=== PATIENT | male | born 1960 | race Caucasian/White ===

== ENCOUNTER 2018-02-12 08:19 | Emergency (ER) | payer OTHER ==
[~2018-02-12] VITALS: Ht 170.2 cm; Wt 70.3 kg
[2018-02-12 08:37] VITALS: BP 112/72
[2018-02-12 09:24] LABS: HEMATOCRIT 42.2 % (42.0-52.0); HEMOGLOBIN 12.7 G/DL (14.2-18.0); MEAN CORPUSCULAR VOLUME 66 FL (80-99); PLATELET COUNT 233 K/UL (150-450); RED BLOOD COUNT 6.39 M/UL (4.70-6.10); RED CELL DISTRIBUTION WIDTH 14.4 % (11.6-14.8); WHITE BLOOD COUNT 6.4 K/UL (4.8-10.8)
--- NOTE | 2018-02-12 09:25 | Diagnostic Imaging Report ---
Indication: Pain Technique: XRAY Chest 1v Comparison: 04/07/2012 Findings: Heart size and mediastinal contours are within normal limits for technique and stable compared to the prior exam. There is no focal consolidation, pneumothorax or pleural effusion. Osseous structures demonstrate no acute abnormality. Impression: No radiographic evidence of acute cardiopulmonary disease.
--- NOTE | 2018-02-12 09:31 | Emergency Room Report ---
History of Present Illness General Chief Complaint: Pain Source: Patient Present Illness HPI 58-year-old male presents ED for evaluation. Patient noting pain in his left axilla and his left wrist. States he's had the pain in his left axilla for the last 2 months. Dull, 6 out of 10, nonradiating. Denies any recent trauma. The notes tingling sensation in his left wrist radiating to his left palm. Denies pain. Denies any motor weakness. Denies any chest pain or shortness of breath. Patient states that he is currently being worked up for a abnormal prostate. States PSA levels were somewhat high. Patient is scheduled for a fusion biopsy in March. No other aggravating relieving factors. Denies any other associated symptoms Allergies: Coded Allergies: No Known Allergies (Unverified , 02/12/18) Patient History Past Medical History: none Past Surgical History: none Pertinent Family History: none Social History: Denies: smoking, alcohol use, drug use Immunizations: UTD Reviewed Nursing Documentation: PMH: Agreed; PSxH: Agreed Review of Systems All Other Systems: negative except mentioned in HPI Physical Exam Vital Signs Date Time Temp Pulse Resp B/P (MAP) Pulse Ox O2 Delivery O2 Flow Rate FiO2 02/12/18 08:27 97.6 72 18 109/69 98 Room Air 97.5 Sp02 EP Interpretation: reviewed, normal General Appearance: no apparent distress, alert, GCS 15, non-toxic Head: normocephalic, atraumatic Eyes: bilateral eye normal inspection, bilateral eye PERRL ENT: hearing grossly normal, normal pharynx, no angioedema, normal voice Neck: full range of motion, supple/symm/no masses Respiratory: chest non-tender, lungs clear, normal breath sounds, speaking full sentences Cardiovascular #1: regular rate, rhythm, no edema Cardiovascular #2: 2+ carotid (R), 2+ carotid (L), 2+ radial (R), 2+ radial (L) , 2+ dorsalis pedis (R), 2+ dorsalis pedis (L) Gastrointestinal: normal bowel sounds, non tender, soft, non-distended, no guarding, no rebound Rectal: deferred Genitourinary: normal inspection, no CVA tenderness Musculoskeletal: back normal, gait/station normal, normal range of motion, non- tender, tender - L axilla. no appreciable lymph node palpated Neurologic: alert, oriented x3, responsive, motor strength/tone normal, sensory intact, speech normal Psychiatric: judgement/insight normal, memory normal, mood/affect normal, no suicidal/homicidal ideation Reflexes: 3+ bicep (R), 3+ bicep (L), 3+ tricep (R), 3+ tricep (L), 3+ knee (R) , 3+ knee (L) Skin: normal color, no rash, warm/dry, well hydrated Lymphatic: no adenopathy Medical Decision Making Diagnostic Impression: Primary Impression: Arm pain Qualified Codes: M79.602 - Pain in left arm ER Course Hospital Course 58 yo M presents with L arm pain tinging to fingers Differential diagnoses include: Rib fracture, [place]/unstable angina, contusion, muscle strain Clinical course Patient placed on stretcher. After initial history and physical I ordered labs , EKG, chest x-ray. labs reviewed- all electrolytes normal, troponins negative, no leukocytosis, hemoglobin/hematocrit stable EKG - NSR, no acute ischemic changes interpreted by me Chest x-ray-no cardiomegaly, no rib fracture, no pneumothorax, no acute process I discussed findings with the patient. Patient does have pain in the axilla which she describes as deep. Consideration for lymphadenopathy although I am unable to palpate this. Concern is that patient is being worked up for possible prostate cancer and this could indicate possible metastasis or spread. Patient has no shortness of breath or chest pain. No fevers or chills. No cough. Patient has no cardiac risk factors. Patient has had these symptoms for the last 2 months. Patient will follow-up with his PMD. Consideration of CT versus MRI as outpatient with possible biopsy if lymphadenopathy detected I. I feel this is a highly complex case requiring extensive working including EKG/Rhythm strip, Xray/CT/US, Blood/urine lab work, repeat exams while in ED, and administration of strong opiates/narcotics for pain control, admission to hospital or close patient follow up. Diagnosis - arm pain Stable and discharged to home. Instructed to followup with PMD. Return to ED if symptoms recur or worsen Labs Test 02/12/18 09:10 White Blood Count 6.4 K/UL (4.8-10.8) Red Blood Count 6.39 M/UL (4.70-6.10) Hemoglobin 12.7 G/DL (14.2-18.0) Hematocrit 42.2 % (42.0-52.0) Mean Corpuscular Volume 66 FL (80-99) Mean Corpuscular Hemoglobin 19.9 PG (27.0-31.0) Mean Corpuscular Hemoglobin Concent 30.2 G/DL (32.0-36.0) Red Cell Distribution Width 14.4 % (11.6-14.8) Platelet Count 233 K/UL (150-450) Mean Platelet Volume 7.2 FL (6.5-10.1) Neutrophils (%) (Auto) % (45.0-75.0) Lymphocytes (%) (Auto) % (20.0-45.0) Monocytes (%) (Auto) % (1.0-10.0) Eosinophils (%) (Auto) % (0.0-3.0) Basophils (%) (Auto) % (0.0-2.0) Differential Total Cells Counted 100 Neutrophils % (Manual) 74 % (45-75) Lymphocytes % (Manual) 16 % (20-45) Monocytes % (Manual) 6 % (1-10) Eosinophils % (Manual) 4 % (0-3) Basophils % (Manual) 0 % (0-2) Band Neutrophils 0 % (0-8) Platelet Estimate Adequate Platelet Morphology Normal Hypochromasia 1+ Microcytosis 3+ Sodium Level 137 MMOL/L (136-145) Potassium Level 4.5 MMOL/L (3.5-5.1) Chloride Level 103 MMOL/L (98-107) Carbon Dioxide Level 27 MMOL/L (21-32) Anion Gap 7 mmol/L (5-15) Blood Urea Nitrogen 10 mg/dL (7-18) Creatinine 0.8 MG/DL (0.55-1.30) Estimat Glomerular Filtration Rate > 60 mL/min (>60) Glucose Level 95 MG/DL (74-106) Calcium Level 9.0 MG/DL (8.5-10.1) Total Bilirubin 0.8 MG/DL (0.2-1.0) Aspartate Amino Transf (AST/SGOT) 28 U/L (15-37) Alanine Aminotransferase (ALT/SGPT) 26 U/L (12-78) Alkaline Phosphatase 69 U/L (46-116) Total Creatine Kinase 64 U/L (26-308) Creatine Kinase MB < 0.5 NG/ML (0.0-3.6) Creatine Kinase MB Relative Index 0.7 Troponin I 0.000 ng/mL (0.000-0.056) Total Protein 7.3 G/DL (6.4-8.2) Albumin 3.9 G/DL (3.4-5.0) Globulin 3.4 g/dL Albumin/Globulin Ratio 1.1 (1.0-2.7) EKG Diagnostic Results Rate: normal Rhythm: NSR ST Segments: no acute changes ASA given to the pt in ED: No Rhythm Strip Diag. Results EP Interpretation: yes Rhythm: NSR, no PVC's, no ectopy Chest X-Ray Diagnostic Results Chest X-Ray Diagnostic Results : Chest X-Ray Ordered: Yes # of Views/Limited/Complete: 1 View Indication: Chest Pain EP Interpretation: Yes Interpretation: no consolidation, no effusion, no pneumothorax, no acute cardiopulmonary disease Impression: No acute disease Electronically Signed by: Electronically signed by Reddy King MD Last Vital Signs Date Time Temp Pulse Resp B/P (MAP) Pulse Ox O2 Delivery O2 Flow Rate FiO2 02/12/18 08:27 97.6 72 18 109/69 98 Room Air 97.5 Status: improved Disposition: HOME, SELF-CARE Condition: Stable Scripts No Active Prescriptions or Reported Meds Referrals: [facility] (PCP) Reddy King MD Feb 12, 2018 09:31
[2018-02-12 09:32] LABS: ANION GAP 7 mmol/L (5-15); BLOOD UREA NITROGEN 10 mg/dL (7-18); CARBON DIOXIDE 27 MMOL/L (21-32); CHLORIDE 103 MMOL/L (98-107); CREATININE 0.8 MG/DL (0.55-1.30); POTASSIUM 4.5 MMOL/L (3.5-5.1); SODIUM 137 MMOL/L (136-145)
[2018-02-12 09:46] LABS: ALANINE AMINOTRANSFERASE 26 U/L (12-78); ALBUMIN 3.9 G/DL (3.4-5.0); ALBUMIN/GLOBULIN RATIO 1.1 (1.0-2.7); ALKALINE PHOSPHATASE 69 U/L (46-116); ASPARTATE AMINO TRANSFERASE 28 U/L (15-37); BILIRUBIN,TOTAL 0.8 MG/DL (0.2-1.0); CKMB < 0.5 NG/ML (0.0-3.6); CREATINE KINASE 64 U/L (26-308)
[2018-02-12 10:25] VITALS: BP 107/69
--- NOTE | 2018-02-13 16:25 | Cardiology Report ---
APPROVED REPORT EKG Measurement Heart [id number] Normal sinus rhythm Normal ECG
== END 2018-02-12 10:29 | disposition home or self-care (01) ==
LOC: EMR 08:52
DX: M79.622 Pain in left upper arm (principal); R20.2 Paresthesia of skin
CPT/HCPCS: 36415; 71045; 80053; 82550; 82553; 84484; 85007; 85025; 93005; 99283

== ENCOUNTER 2018-02-27 11:18 | Emergency (ER) | payer OTHER ==
[~2018-02-27] VITALS: Ht 170.2 cm; Wt 70.3 kg
[2018-02-27 11:34] VITALS: BP 124/77
--- NOTE | 2018-02-27 12:39 | Emergency Room Report ---
History of Present Illness General Chief Complaint: Allergic Reaction Source: Patient Present Illness HPI 58-year-old male presents with allergic reaction after using a topical skin cream on his face, he reports he within an hour started developing swelling around his eyes, and cut his throat was closing, he never had a hoarse voice, no red eyes or abdominal pain or any other symptoms and he reports that his hours improvement incisor still swollen. He reports he had a similar episode about 6 weeks ago when he ate a bunch of fenugreek seeds inhis throat swelling at that time but that went away on its own so he never got checked out again. He's never had any other similar reactions in his life. He reports he is not sure exactly what kind of facial cream that was. Allergies: Coded Allergies: FENUGREEK (Verified Allergy, Unknown, 02/27/18) Patient History Past Medical History: see triage record Reviewed Nursing Documentation: PMH: Agreed; PSxH: Agreed Nursing Documentation-PMH Past Medical History: No Stated History Review of Systems All Other Systems: negative except mentioned in HPI Physical Exam Vital Signs Date Time Temp Pulse Resp B/P (MAP) Pulse Ox O2 Delivery O2 Flow Rate FiO2 02/27/18 11:19 97.8 68 18 124/77 98 Room Air 97.9 Sp02 EP Interpretation: reviewed, normal General Appearance: no apparent distress, alert, non-toxic Head: normocephalic Eyes: bilateral eye normal inspection, bilateral eye PERRL, bilateral eye EOMI , bilateral eye other - Periorbital mild edema around lids superior and inferior , otherwise normal ENT: normal ENT inspection, hearing grossly normal, normal pharynx, no angioedema, normal voice, moist mucus membranes Neck: normal inspection, full range of motion, supple, supple/symm/no masses Respiratory: chest non-tender, lungs clear, normal breath sounds, chest symmetrical, palpation of chest normal Cardiovascular #1: normal peripheral pulses, regular rate, rhythm Cardiovascular #2: 2+ radial (R), 2+ radial (L) Gastrointestinal: normal inspection, non tender, soft, no mass, no guarding, no rebound Rectal: deferred Genitourinary: normal inspection, no CVA tenderness Musculoskeletal: back normal, gait/station normal, normal range of motion, non- tender, no calf tenderness Neurologic: alert, responsive, reflexologist III-XII nml as tested, motor strength/tone normal, sensory intact, speech normal Psychiatric: judgement/insight normal, memory normal, mood/affect normal, no suicidal/homicidal ideation Skin: normal color, no rash - Normal other than periorbital edema, with no erythema, warm/dry, normal turgor Lymphatic: no adenopathy Medical Decision Making Diagnostic Impression: Primary Impression: Allergic reaction ER Course Although patient reported his throat was closing, he had a completely normal oral exam, the only reaction he seemed to have as a topical 1 around his eyes, he'll be discharged with prednisone and Benadryl, he was monitored for over an hour in the ED did not develop any systemic or mucous membrane symptomatology or airway impingement symptoms here or exam findings of concern. He was instructed to avoid using the product as well as fenugreek seeds and follow-up with his primary doctor for allergy testing referral Last Vital Signs Date Time Temp Pulse Resp B/P (MAP) Pulse Ox O2 Delivery O2 Flow Rate FiO2 02/27/18 11:34 97.9 80 18 124/77 98 Room Air 97.9 Status: improved Disposition: HOME, SELF-CARE Condition: Stable Scripts No Active Prescriptions or Reported Meds Referrals: [facility] (PCP) XU DAVIS M.D Feb 27, 2018 12:39
[2018-02-27] MEDS ORDERED: PREDNISONE20 MG ORAL (12:40)
[2018-02-27] MEDS ORDERED: BENADRYL25 M3 PO (12:40)
[2018-02-27 12:48] VITALS: BP 124/77
== END 2018-02-27 12:50 | disposition home or self-care (01) ==
LOC: EMR 11:45
DX: T78.49XA Other allergy, initial encounter (principal); X58.XXXA Exposure to other specified factors, initial encounter; M79.89 Other specified soft tissue disorders
CPT/HCPCS: 99283; J7512

== ENCOUNTER 2018-09-24 15:52 | Emergency (ER) | payer OTHER ==
[~2018-09-24] VITALS: Ht 170.2 cm; Wt 68.0 kg
[~2018-09-24 15:52] MED LIST: BENADRYL25 M3 PO; PREDNISONE20 MG ORAL
[2018-09-24] MEDS ORDERED: NKM (16:06)
--- NOTE | 2018-09-24 16:16 | NUR ---
ED Nurse Note: Pt came into the ER s/p allergic reaction x 4 hours. Pt took 2 pills of a supplement. Pt denies pain,n,d,v. Pt noted to have bilateral swelling of eyes and redness. Pt states that he feels his throat closing. A + O x4. Ambulatory. Skin warm to touch.
[2018-09-24 16:17] VITALS: BP 130/73
[2018-09-24] MEDS ORDERED: DiphenhydrAMINE 50mg/ml Inj IM ONE (16:45)
[2018-09-24] MEDS ORDERED: PREDNISONE20 MG ORAL (17:28)
[2018-09-24] MEDS ORDERED: PATANOL1 DROP OD (17:28)
[2018-09-24] MEDS ORDERED: BENADRYL25 MG ORAL (17:28)
[2018-09-24 17:47] VITALS: BP 115/69
--- NOTE | 2018-09-24 17:48 | NUR ---
ER DISCHARGE NOTE: Patient is cleared to be discharged per ERMD, pt is aox4, on room air, with stable vital signs. pt was given dc and prescription instructions, pt was able to verbalize understanding, pt id band removed without complications. pt is able to ambulate with steady gait. pt took all belongings.
--- NOTE | 2018-09-24 19:22 | Emergency Room Report ---
History of Present Illness General Chief Complaint: Allergic Reaction Source: Patient Present Illness HPI Patient is a 58-year-old male who presented for increased facial swelling. Patient reports having recently ingested a medication called Ibuactin. This is reportedly prior to onset of swelling to his face. He reports having some mild shortness of breath. He denies any fever. He denies prior allergic reactions. Patient denies any extremity swelling or chest pain. He denies any fever. He reported taking some aspirin in the past. Allergies: Uncoded Allergies: IBUACTIN (Allergy, Unknown, 09/24/18) Patient History Past Medical History: see triage record Reviewed Nursing Documentation: PMH: Agreed; PSxH: Agreed Nursing Documentation-PMH Past Medical History: No Stated History Hx Cancer: Yes - PROSTATE Review of Systems All Other Systems: negative except mentioned in HPI Physical Exam Vital Signs Date Time Temp Pulse Resp B/P (MAP) Pulse Ox O2 Delivery O2 Flow Rate FiO2 09/24/18 16:02 98.1 67 16 128/79 99 Room Air 09/24/18 16:17 100 Sp02 EP Interpretation: reviewed, normal General Appearance: normal inspection, well appearing, no apparent distress, alert, GCS 15, non-toxic Head: atraumatic Eyes: bilateral eye other - bilalteral eyelid swelling, uvula midline ENT: normal ENT inspection, hearing grossly normal, normal voice Neck: normal inspection, full range of motion, supple, no bony tend Respiratory: normal inspection, lungs clear, normal breath sounds, no respiratory distress, no retraction, no wheezing Cardiovascular #1: regular rate, rhythm, no edema Gastrointestinal: normal inspection, normal bowel sounds, non tender, soft, no guarding, no hernia Genitourinary: no CVA tenderness Musculoskeletal: normal inspection, back normal, normal range of motion Neurologic: normal inspection, alert, oriented x3, responsive, vending technician III-XII nml as tested, motor strength/tone normal, speech normal Psychiatric: normal inspection, judgement/insight normal, mood/affect normal Skin: normal inspection, normal color, no rash Medical Decision Making Diagnostic Impression: Primary Impression: Allergic reaction ER Course . Patient presented for allergic reaction. Differential diagnosis includes is not limited to anaphylaxis, angioedema, nephrotic syndrome among others. Patient has a benign exam and does not appear to require any further imaging or laboratory testing at this time. The patient was given oral steroids as well as Benadryl. He was noted to have improvement in his symptoms. He was given prescription for further all steroids as well as Benadryl. He was advised not to drive while taking Benadryl. Last Vital Signs Date Time Temp Pulse Resp B/P (MAP) Pulse Ox O2 Delivery O2 Flow Rate FiO2 09/24/18 17:47 98.3 60 16 115/69 100 Room Air 09/24/18 16:17 100 Status: improved Disposition: HOME, SELF-CARE Condition: Stable Scripts Olopatadine (Patanol) 5 Ml Drops 1 DROP OD TWICE A DAY, #5 ML Prov: Ziggy Cadet MD 09/24/18 Diphenhydramine Hcl* (BENADRYL*) 25 Mg Capsule 25 MG ORAL Q6H PRN for Itching, #30 CAP Prov: Ziggy Cadet MD 09/24/18 Prednisone* (PREDNISONE*) 20 Mg Tablet 40 MG ORAL DAILY, #10 TAB Prov: Ziggy Cadet MD 09/24/18 Referrals: [facility] (PCP) Patient Instructions: Drug Allergy Additional Instructions: Take benadryl regularly Ziggy Cadet MD Sep 24, 2018 19:22
== END 2018-09-24 17:48 | disposition home or self-care (01) ==
LOC: EMR 17:33
DX: T78.40XA Allergy, unspecified, initial encounter (principal); X58.XXXA Exposure to other specified factors, initial encounter; Z85.46 Personal history of malignant neoplasm of prostate
CPT/HCPCS: 96372; 99283; J1200; J7512